=== PATIENT | female | born 1930 | race Caucasian/White ===

== ENCOUNTER 2018-09-21 11:41 | Emergency (ER) | payer OTHER ==
[2018-09-21] MEDS ORDERED: NS 1,000 ML IV ONE (13:09)
[2018-09-21 13:11] LABS: PLATELET COUNT 424 10^3/uL (150-400)
--- NOTE | 2018-09-21 13:19 | EDPHY ---
H & P Stated Complaint: [facility] wants workup prior to admission Time Seen by Provider: 09/21/18 13:05 HPI/ROS: CHIEF COMPLAINT: Complicated patient referred to emergency department from [facility] for medical clearance. HISTORY OF PRESENT ILLNESS: This is an elderly female who reportedly was living in a long-term in [place] who reportedly drove 21 hr to be directly admitted to [facility]. She arrived in they were concerned about her mental status and referred her to the emergency department for clearance. The patient herself has severe dementia and encephalopathy. She is unable to provide any history. In reviewing her records she has recently been treated for pneumonia, leukocytosis, hyperkalemia and dementia with behavior behavioral changes. She has had a recent negative urine culture from the july. She did have an x-ray at that time which demonstrated the possibility of pneumonia. The patient also has a history of influenza infection. The patient has no acute complaints however is unable to provide meaningful history in the emergency department. REVIEW OF SYSTEMS: A comprehensive 10 point review of systems is otherwise negative aside from elements mentioned in the history of present illness. Source: Patient Exam Limitations: Clinical condition - Personal History Current Tetanus Diphtheria and Acellular Pertussis (TDAP): Yes - Medical/Surgical History Hx Asthma: No Hx Chronic Respiratory Disease: No Hx Diabetes: No Hx Cardiac Disease: Yes Hx Renal Disease: No Hx Cirrhosis: No Hx Alcoholism: No Hx HIV/AIDS: No Hx Splenectomy or Spleen Trauma: No Other PMH: dementia, pneumonia, pressure ulcers on coccyx and feet, afib, cardioversion x 2. - Social History Smoking Status: Never smoked - Physical Exam Exam: General Appearance: Elderly female, kyphotic Eyes: Pupils equal and round no pallor or injection ENT, Mouth: Mucous membranes moist Respiratory: There are no retractions, lungs are clear to auscultation Cardiovascular: Regular rate and rhythm Gastrointestinal: Abdomen is soft and nontender, no masses, bowel sounds normal Neurological: Alert and oriented x1, moves all 4 extremities with global weakness Skin: Pressure ulcers noted to bilateral heels and feet, stage 2/3 sacral decubitus Musculoskeletal: Neck is supple nontender Extremities: symmetrical, full range of motion Constitutional: Initial Vital Signs Temperature (C) 36.9 C 09/21/18 12:00 Heart Rate 74 09/21/18 12:00 Respiratory Rate 18 09/21/18 12:00 Blood Pressure 109/81 H 09/21/18 12:00 O2 Sat (%) 94 09/21/18 12:00 O2 Delivery Mode Room Air Allergies/Adverse Reactions: Iodinated Contrast- Oral and IV Dye Allergy (Verified 09/21/18 12:00) Medical Decision Making ED Course/Re-evaluation: I reviewed the patient's past medical records. She does have a history of chronic leukocytosis. She did have a recent negative urine culture. The patient does have chronic skin changes to her sacrum and lower extremities from pressure ulcers. The patient has no signs of trauma. She does appear dehydrated. She received IV fluids in the emergency department. The patient has no evidence of septic physiology. The patient's chest x-ray demonstrates no evidence of a obvious pneumonia per my interpretation. At this point time I do feel the patient can be discharged to the long-term. I detect no obvious acute abnormality aside from dehydration which has been treated with IV fluids in the emergency department. Differential Diagnosis: Differential diagnosis considered includes pneumonia, urinary tract infection, dehydration, metabolic derangement - Data Points Laboratory Results: Laboratory Results 09/21/18 12:25 09/21/18 12:25 09/21/18 09/21/18 09/21/18 13:40 12:25 12:25 WBC RBC Hgb Hct MCV MCH MCHC RDW Plt Count MPV Neut % (Auto) Lymph % (Auto) [place] % (Auto) Eos % (Auto) Baso % (Auto) Nucleat RBC Rel Count Absolute Neuts (auto) Absolute Lymphs (auto) Absolute Monos (auto) Absolute Eos (auto) Absolute Basos (auto) Absolute Nucleated RBC Immature Gran % Immature Gran # Sodium 136 mEq/L mEq/L (135-145) Potassium 4.4 mEq/L mEq/L (3.5-5.2) Chloride 101 mEq/L mEq/L (97-110) Carbon Dioxide 21 mEq/l L mEq/l (22-31) Anion Gap 14 mEq/L mEq/L (6-14) BUN 37 mg/dL H mg/dL (7-23) Creatinine 0.9 mg/dL mg/dL (0.6-1.0) Estimated GFR 59 Glucose 88 mg/dL mg/dL (70-100) Calcium 11.3 mg/dL H mg/dL (8.5-10.4) Phosphorus 3.2 mg/dL mg/dL (2.5-4.5) Total Bilirubin 1.0 mg/dL mg/dL (0.1-1.4) AST 32 IU/L IU/L (14-46) ALT 53 IU/L H IU/L (9-52) Alkaline Phosphatase 211 IU/L H IU/L (38-126) Creatine Kinase 65 IU/L IU/L (0-156) Total Protein 6.7 g/dL g/dL (6.3-8.2) Albumin 3.8 g/dL g/dL (3.5-5.0) Urine Color AMENA Urine Appearance HAZY Urine pH 5.0 (5.0-7.5) Ur Specific [place] 1.031 H (1.002-1.030) Urine Protein NEGATIVE (NEGATIVE) Urine Ketones 1+ H (NEGATIVE) Urine Blood NEGATIVE (NEGATIVE) Urine Nitrate NEGATIVE (NEGATIVE) Urine Bilirubin NEGATIVE (NEGATIVE) Urine Urobilinogen 4.0 EU H EU (0.2-1.0) Ur Leukocyte Esterase NEGATIVE (NEGATIVE) Urine Glucose NEGATIVE (NEGATIVE) 09/21/18 12:25 WBC 15.21 10^3/uL H 10^3/uL (3.80-9.50) RBC 3.56 10^6/uL L 10^6/uL (4.18-5.33) Hgb 10.7 g/dL L g/dL (12.6-16.3) Hct 34.4 % L % (38.0-47.0) MCV 96.6 fL fL (81.5-99.8) MCH 30.1 pg pg (27.9-34.1) MCHC 31.1 g/dL L g/dL (32.4-36.7) RDW 14.2 % % (11.5-15.2) Plt Count 424 10^3/uL H 10^3/uL (150-400) MPV 8.9 fL fL (8.7-11.7) Neut % (Auto) 66.0 % % (39.3-74.2) Lymph % (Auto) 28.5 % % (15.0-45.0) [place] % (Auto) 4.3 % L % (4.5-13.0) Eos % (Auto) 0.2 % L % (0.6-7.6) Baso % (Auto) 0.2 % L % (0.3-1.7) Nucleat RBC Rel Count 0.0 % % (0.0-0.2) Absolute Neuts (auto) 10.04 10^3/uL H 10^3/uL (1.70-6.50) Absolute Lymphs (auto) 4.33 10^3/uL H 10^3/uL (1.00-3.00) Absolute Monos (auto) 0.66 10^3/uL 10^3/uL (0.30-0.80) Absolute Eos (auto) 0.03 10^3/uL 10^3/uL (0.03-0.40) Absolute Basos (auto) 0.03 10^3/uL 10^3/uL (0.02-0.10) Absolute Nucleated RBC 0.00 10^3/uL 10^3/uL (0-0.01) Immature Gran % 0.8 % % (0.0-1.1) Immature Gran # 0.12 10^3/uL H 10^3/uL (0.00-0.10) Sodium Potassium Chloride Carbon Dioxide Anion Gap BUN Creatinine Estimated GFR Glucose Calcium Phosphorus Total Bilirubin AST ALT Alkaline Phosphatase Creatine Kinase Total Protein Albumin Urine Color Urine Appearance Urine pH Ur Specific [place] Urine Protein Urine Ketones Urine Blood Urine Nitrate Urine Bilirubin Urine Urobilinogen Ur Leukocyte Esterase Urine Glucose Medications Given: Discontinued Medications Sodium Chloride (Ns) 1,000 mls @ 0 mls/hr IV EDNOW ONE; Wide Open PRN Reason: Protocol Stop: 09/21/18 13:10 Last Admin: 09/21/18 13:19 Dose: 1,000 mls Departure - Departure Disposition: Home, Routine, Self-Care Clinical Impression: Dehydration, Sacral decubitus ulcer, stage III, Dementia Condition: Fair Instructions: Dementia (ED) Additional Instructions: We have identified no acute condition aside from mild dehydration which was treated with IV fluids. 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 She has chronic leukocytosis. There is no obvious indication for new antibiotic therapy today. Referrals: NONE *PRIMARY CARE P,. [Primary Care Provider] - As per Instructions
[2018-09-21 13:40] LABS: CREATINE KINASE 65 IU/L (0-156)
[2018-09-21] MEDS ORDERED: ACETAMINOPHEN 500 MG TAB PO ONE (15:31)
--- NOTE | 2018-09-21 15:50 | ASMTCMCOM ---
CM Note CM Note Notes: Pt presented to the ED by private vehicle for AMS, hip pain, incontinence of soil and urine, and decreased responsiveness per family. Pt just arrived to [place] today from [place]; pt was to be directly admitted to [facility] from her SNF in [place]. But upon the pt's arrival to , the staff there felt it would be best that pt was evaluated in the ED. Pt had been sitting in the car for the 21 hr ride and per her daughter Tara ([phone]), pt's condition and level of responsiveness "worsened" in the last 5 hours of the car ride. This CM received a call from Raegan at [facility] ([phone]) notifying us that the pt was on her way to the ED. Raegan faxed over pt's records to the ED and these were given to the ED MD. Raegan stated that if pt doesn't need to be admitted to [facility] then they will continue to direct admit the pt as previously planned. Pt was assessed and is ready for DC to . ROHITH called Tara and notified her of pt's DC and plan to transport back to . CM called and spoke Raegan and provided updates. Raegan said it was ok to arrange transport and for the ED RN to call and give RN report. CM arranged [facility] stretcher transport to ; PCS completed and copy provided to EMS. ED RN provided # to call and give report. CM sent ED Report, lab results, & xray result to via [email or web address]. CM available for further assistance if needed. Date Signed: 09/21/2018 03:49 PM Electronically Signed By:Ariane Oshea RN
[2018-09-21 16:05] VITALS: BP 102/67
--- NOTE | 2018-09-21 16:37 | ASDISCHSUM ---
Discharge Information Plan Status:SNF Medically Cleared to Leave: Discharge Date:09/21/2018 04:11 PM D/C Disposition:[facility] Facility ADT D/C Disposition:Home, Routine, Self-Care Projected Discharge Date:09/21/2018 03:00 PM Transportation at D/C:ALS/BLS Discharge Delay Reason: Follow-Up Date:09/21/2018 03:00 PM Discharge Slot: Final Diagnosis: Placement Information Referral Type:*[facility]NF Referral ID:[facility]-[id number] Provider Name:[facility] Address 1:[address] Address 2: City:[place] Selection Factors: State:[place] Patient Contact Information Contact Name:GLADIS Relationship:Daughter Address:[address] [place] [address] Work Phone: [facility]:[place] Alternate Phone: [facility]/Zip Code:[place] [address] Email: Financial Information Financial Class:Medicare Primary Plan Desc:MEDICARE OUTPATIENT Primary Plan Number:[id number] Secondary Plan Desc: Secondary Plan Number: Assessment Information [facility] CM Progress Note CM Note CM Note Notes: Pt presented to the ED by private vehicle for AMS, hip pain, incontinence of soil and urine, and decreased responsiveness per family. Pt just arrived to [place] today from [place]; pt was to be directly admitted to [facility] from her SNF in [place]. But upon the pt's arrival to , the staff there felt it would be best that pt was evaluated in the ED. Pt had been sitting in the car for the 21 hr ride and per her daughter Tara ([phone]), pt's condition and level of responsiveness "worsened" in the last 5 hours of the car ride. This CM received a call from Raegan at [facility] ([phone]) notifying us that the pt was on her way to the ED. Raegan faxed over pt's records to the ED and these were given to the ED MD. Carlin stated that if pt doesn't need to be admitted to [facility] then they will continue to direct admit the pt as previously planned. Pt was assessed and is ready for DC to . CM called Tara and notified her of pt's DC and plan to transport back to . CM called and spoke Raegan and provided updates. Raegan said it was ok to arrange transport and for the ED RN to call and give RN report. CM arranged [facility] stretcher transport to ; PCS completed and copy provided to EMS. ED RN provided MC # to call and give report. CM sent ED Report, lab results, & xray result to via [employer]. CM available for further assistance if needed. Date Signed: 09/21/2018 03:49 PM Electronically Signed By:Ariane Oshea RN Intervention Information Intervention Type:Transportation Date of Service:09/21/2018 04:34 PM Patient Type:Emergency Room Staff Member:IRAIS Oshea [place] Hours:0.25 Discipline:Color Printer Operator Severity: Comment:[facility] stretcher to [facility]. PCS compl eted. Copy given to EMS. Original to be scanned into pt chart. Intervention Type:Post Acute Communication Date of Service:09/21/2018 04:34 PM Patient Type:Emergency Room Staff Member:IRAIS Oshea [place] Hours:0.5 Discipline:Color Printer Operator Severity: Comment:various communication with [facility] and also with pt's daughter Tara
== END 2018-09-21 16:11 | disposition home or self-care (01) ==
DX: E86.0 Dehydration (principal); L89.153 Pressure ulcer of sacral region, stage 3; F03.90 Unspecified dementia, unspecified severity, without behavioral disturbance, psychotic disturbance, mood disturbance, and anxiety; G93.40 Encephalopathy, unspecified